=== PATIENT | male | born 1970 | race Caucasian/White ===

== ENCOUNTER 2020-07-12 06:22 | Day surgery (SDC) | payer OTHER ==
[2020-07-09 11:11] VITALS: BP 157/103
[~2020-07-12] VITALS: Ht 188 cm; Wt 117.2 kg
[~2020-07-12 06:22] MED LIST: NONE PER PT
[2020-07-12] MEDS ORDERED: LACTATED RINGERS 1,000 ML IV SCH (06:47)
[2020-07-12] MEDS ORDERED: CHLORHEXIDINE 15 ML UDC MM ONE (07:00)
[2020-07-12] MEDS ORDERED: FENTANYL PF 100 MCG/2ML ONE ×2 (07:50→09:00)
[2020-07-12] MEDS ORDERED: MIDAZOLAM 1 MG/ML, 2ML ONE (07:50)
[2020-07-12] MEDS ORDERED: HYDROmorphone 1 MG/ML, 1ML INJ IVPush PRN (08:00)
[2020-07-12] MEDS ORDERED: HYDROcodone/APAP 7.5-325MG/15ML UDC PO PRN (08:00)
[2020-07-12] MEDS ORDERED: PROMETHAZINE 25 MG/ML, 1ML IVPush PRN (08:00)
[2020-07-12] MEDS ORDERED: MEPERIDINE/PF 25MG/0.5ML IVPush PRN (08:00)
[2020-07-12] MEDS ORDERED: OXYcodone 5 MG/5 ML ORAL.SOL UDC PO PRN (08:00)
[2020-07-12] MEDS ORDERED: FENTANYL PF 100 MCG/2ML IV PRN (08:00)
[2020-07-12] MEDS ORDERED: ONDANSETRON 2MG/ML, 2ML ONE (08:03)
[2020-07-12] MEDS ORDERED: CEFAZOLIN 1,000 MG ONE (08:03)
[2020-07-12] MEDS ORDERED: DEXAMETHASONE 4 MG/ML, 1ML ONE (08:03)
[2020-07-12] MEDS ORDERED: PROPOFOL 10 MG/ML, 20ML ONE (08:03)
[2020-07-12] MEDS ORDERED: BUPIVACAINE/PF 0.5% ONE (08:22)
[2020-07-12] MEDS ORDERED: OXYcodone 5 MG/5 ML ORAL.SOL UDC ONE (09:00)
== END 2020-07-12 11:00 | disposition home or self-care (01) ==
LOC: OUT 06:22 → EDSTATUS 10:30 → OUT 11:00
PROVIDERS: ATTEND Surgery
DX: N63.42 Unspecified lump in left breast, subareolar (principal); Z20.828 Contact with and (suspected) exposure to other viral communicable diseases; Z98.890 Other specified postprocedural states
CPT/HCPCS: 19120; 36415; 87635; 88307; J0690; J1100; J2250; J2405; J2704; J3010; J7120